=== PATIENT | male | born 1955 | race Hispanic/Latino ===

== ENCOUNTER → 2022-10-05 | Outpatient (CLI) | payer MEDICARE ==
[~2022-10-05] MED LIST: GADOBENATE DIMEGLUMINE 1 ML IV ONE
[2022-10-05 13:57] LABS: CREATININE, SERUM 0.91 mg/dL (0.72-1.25)
== END ==
LOC: MRI 13:00
PROVIDERS: ATTEND Internal Medicine Gastroenterology
DX: R05.3 Chronic cough (principal); R16.0 Hepatomegaly, not elsewhere classified; R16.1 Splenomegaly, not elsewhere classified
CPT/HCPCS: 36415; 74183; 82565; 84520

== ENCOUNTER → 2022-10-24 | Outpatient (CLI) | payer MEDICARE ==
[~2022-10-24] MED LIST changes: +FENTANYL CITRATE/PF 100MCG/2 ML INJ ONE; -GADOBENATE DIMEGLUMINE 1 ML IV ONE; +LIDOCAINE HCL 1% LOCAL INJ 20 ML VIAL ONE; +MIDAZOLAM HCL 2 MG/2 ML VIAL ONE; +SODIUM CHLORIDE 0.9% 250ML 250 ML ONE
[2022-10-24 10:20] LABS: ANION GAP 18.7 mmol/L (8-16); CALCIUM 9.6 mg/dL (8.4-10.2); CREATININE, SERUM 0.79 mg/dL (0.72-1.25); POTASSIUM 4.7 mmol/L (3.5-5.1)
[2022-10-24 10:22] LABS: BASOPHILS % 0.2 % (0.0-1.0); EOSINOPHILS # (AUTO) 0.1 (0.0-0.4); EOSINOPHILS % 0.3 % (0.0-6.0); HEMATOCRIT 31.6 % (38.2-49.6); HEMOGLOBIN 9.5 g/dL (14.0-18.0); LYMPHOCYTES % 5.2 % (18.0-39.1); MEAN CORPUSCULAR HEMOGLOBIN 26.3 pg (28-32); MEAN CORPUSCULAR HGB CONC 30.1 g/dL (31-35); MEAN CORPUSCULAR VOLUME 87.5 fL (81-99); MONOCYTES # (AUTO) 0.8 (0.2-0.8); MONOCYTES % 4.2 % (4.4-11.3); NEUTROPHILS # (AUTO) 16.8 (2.1-6.9); NEUTROPHILS % 89.5 % (38.7-80.0); PLATELET COUNT 374 x10e3/uL (140-360); RED BLOOD COUNT 3.61 x10e6/uL (4.3-5.7); RED CELL DISTRIBUTION WIDTH 14.2 % (11.7-14.4)
[2022-10-24 10:37] LABS: INR 1.13; PROTHROMBIN TIME 15.4 seconds (11.9-14.5)
[2022-10-24 10:38] LABS: PARTIAL THROMBOPLASTIN TIME 35.3 seconds (23.8-35.5)
== END ==
LOC: US 09:30
PROVIDERS: ATTEND Internal Medicine Gastroenterology
DX: K76.9 Liver disease, unspecified (principal); K86.9 Disease of pancreas, unspecified
CPT/HCPCS: 36415; 47000; 76942; 80048; 85025; 85610; 85730; 88305; 88333; J2001; J2250; J3010; J7050; 88307